=== PATIENT | male | born 1945 | race Caucasian/White ===

== ENCOUNTER → 2016-07-10 | Outpatient (REF) | payer MEDICARE, BC ==
[2016-07-10 15:18] LABS: ANION GAP 17.6 MEQ/L (3-15)
== END ==
LOC: LAB 15:04
PROVIDERS: ATTEND Nurse Practitioner Family
DX: L03.115 Cellulitis of right lower limb (principal)
CPT/HCPCS: 80048

== ENCOUNTER → 2016-10-17 | Outpatient (CLI) | payer MEDICARE, BC ==
[~2016-10-17] MED LIST: ASPI-860 PO
--- NOTE | 2016-10-17 12:06 | Diagnostic Imaging Report ---
INDICATION: Acute lower back pain. COMPARISON: None FINDINGS: Frontal, lateral, and oblique radiographic views of the lumbar spine were obtained. Static alignment is maintained. There is no significant anteroretrolisthesis. There are mild to moderate multilevel degenerative changes consisting of intervertebral disc height loss with disc osteophyte complex formations. There is also multilevel facet arthropathy. Oblique views show sclerotic appearance to the pars of L5 likely on a degenerative basis. No pars defects are seen. Surrounding soft tissue structures are unremarkable. Included small bowel loops are nondistended. IMPRESSION: 1. No radiographic evidence of acute fracture or dislocation of the lumbar spine. 2. Mild to moderate multilevel degenerative changes. Dictated by: Dictated on workstation # [id number]
== END ==
LOC: RAD 10:20
PROVIDERS: ATTEND Family Medicine
DX: M54.5 Low back pain (principal); M79.605 Pain in left leg
CPT/HCPCS: 72110

== ENCOUNTER → 2016-10-22 | Outpatient (CLI) | payer MEDICARE, BC ==
[2016-10-22 12:15] LABS: BASOPHILS % (AUTO) 0 % (0-2); EOSINOPHILS # (AUTO) 0.1 10^3uL; EOSINOPHILS % (AUTO) 1 % (0-4); LYMPHOCYTES # (AUTO) 1.9 X10^3; MEAN CORPUSCULAR HEMOGLOBIN 31.1 PG (26.0-34.0); MEAN CORPUSCULAR HGB CONC 34.5 g/dL (31.0-37.0); MEAN CORPUSCULAR VOLUME 90 FL (80-100); MEAN PLATELET VOLUME 10.2 FL (6.0-9.5); MONOCYTES # (AUTO) 0.8 X10^3; MONOCYTES % (AUTO) 10 % (3-11); NEUTROPHILS # (AUTO) 5.1 X10^3; NEUTROPHILS % (AUTO) 64 % (51-67); PLATELET COUNT 234 10^3uL (150-450); WHITE BLOOD COUNT 7.97 10^3uL (4.0-11.0)
[2016-10-22 12:55] LABS: ERYTHROCYTE SEDIMENTATION RT* 22 mm/hr (0-19)
--- NOTE | 2016-10-22 13:05 | Diagnostic Imaging Report ---
INDICATION: Left hip pain. COMPARISON: CT abdomen and pelvis from 12/12/2009. TECHNIQUE: AP and frog-leg lateral views of left hip. FINDINGS: There is no acute fracture or traumatic malalignment. Moderate degenerative changes of the left hip include superior joint space narrowing and prominent marginal osteophytes at both the femoral head neck junction as well as arising from the acetabulum. There are also subcortical cystic changes within the acetabulum. No acetabular retroversion. IMPRESSION: 1. No acute osseous abnormality about the left hip. 2. Moderate osteoarthritis of the left hip. Dictated by: Dictated on workstation # [id number]
== END ==
LOC: RAD 11:31
PROVIDERS: ATTEND Family Medicine
DX: M25.552 Pain in left hip (principal)
CPT/HCPCS: 36415; 73502; 85025; 85652; 86140